=== PATIENT | female | born 2000 | race Two or more races ===

== ENCOUNTER 2024-06-13 12:45 | Outpatient (CLI) | payer OTHER | END 2024-06-13 12:48 | disposition home or self-care (01) | LOC: PRENATAL 12:45 | PROVIDERS: ATTEND Obstetrics & Gynecology Maternal & Fetal Medicine | DX: O26.849 Uterine size-date discrepancy, unspecified trimester (principal); Z36.0 Encounter for antenatal screening for chromosomal anomalies; Z14.8 Genetic carrier of other disease; Z3A.15 15 weeks gestation of pregnancy ==

== ENCOUNTER → 2024-07-18 14:36 | Outpatient (CLI) | payer OTHER | END | disposition home or self-care (01) | LOC: PRENATAL 14:36 | PROVIDERS: ATTEND Obstetrics & Gynecology Maternal & Fetal Medicine | DX: O44.00 Complete placenta previa NOS or without hemorrhage, unspecified trimester (principal); Z3A.20 20 weeks gestation of pregnancy ==

== ENCOUNTER 2024-10-10 15:02 | Outpatient (CLI) | payer OTHER | END 2024-10-10 16:31 | disposition home or self-care (01) | LOC: PRENATAL 15:02 | PROVIDERS: ATTEND Obstetrics & Gynecology Maternal & Fetal Medicine | DX: O26.849 Uterine size-date discrepancy, unspecified trimester (principal); O36.8199 Decreased fetal movements, unspecified trimester, other fetus; O32.9XX0 Maternal care for malpresentation of fetus, unspecified, not applicable or unspecified; Z3A.34 34 weeks gestation of pregnancy ==

== ENCOUNTER 2024-11-27 13:15 | Inpatient (IN) | payer OTHER ==
[~2024-11-27] VITALS: Ht 157.5 cm; Wt 3.6 kg
[2024-12-02] MEDS ORDERED: RINGERS SOLUTION,LACTATED 1,000 ML IV SCH (06:15)
[2024-12-02 06:29] VITALS: BP 107/71
[2024-12-02] MEDS ORDERED: AMPICILLIN SODIUM 2,000 MG VIAL ONE (06:44)
[2024-12-02] MEDS ORDERED: AMPICILLIN SODIUM 1,000 MG VIAL IV SCH (06:56)
[2024-12-02] MEDS ORDERED: AMPICILLIN SODIUM 2,000 MG VIAL IV ONE (07:00)
[2024-12-02 07:01] LABS: BASO % 0.2 % (0.1-1.2); EOS % 1.2 % (0.7-7.0); HEMATOCRIT 39.4 % (34.1-44.9); HEMOGLOBIN 13.3 g/dL (11.2-15.7); LYMPH # 2.42 (1.18-3.74); LYMPH % 28.6 % (19.3-53.1); MONO # 0.76 (0.24-0.82); NEUT # 5.14 (1.56-6.13); NEUT % 60.8 % (34.0-71.1); PLATELET COUNT 181 K/uL (163-369); RED BLOOD COUNT 4.58 M/uL (3.93-5.22); RED CELL DISTRIBUTION WIDTH 13.5 % (11.6-14.4)
[2024-12-02 07:09] LABS: PH,URINE 6.5 (5.0-8.0); URINE APPEARANCE Clear; URINE BILIRRUBIN Negative (NEGATIVE); URINE BLOOD Negative; URINE COLOR Dark Yellow; URINE GLUCOSE Negative (NEGATIVE); URINE KETONE 15 (NEGATIVE); URINE LEUKOCYTE Moderate; URINE NITRATE Negative; URINE PROTEIN Trace (NEGATIVE)
[2024-12-02 07:12] LABS: URINE EPITHELIAL CELLS 55.5 uL (0.0-38.8); URINE RBC 4.7 uL (0.0-20.8); URINE WBC 113.1 uL (0.0-23.2)
[2024-12-02 07:19] LABS: INR 0.98; PARTIAL THROMBOPLASTIN TIME 25.9 SECONDS (22.0-34.0); PROTHROMBIN TIME 10.7 SECONDS (9.0-11.5); URINE CAST 0.14 uL (0.0-1.40)
[2024-12-02 07:25] VITALS: BP 95/49
[2024-12-02 07:51] LABS: ALBUMIN 2.8 gm/dL (3.4-5.0); BILIRUBIN TOTAL 0.41 mg/dL (0.3-1.2); CALCIUM 9.1 mg/dL (8.5-10.1); CREATININE SERUM 0.74 mg/dL (0.55-1.02); GFR 95.62; GLOBULINA 3.7 G/DL (2.4-3.5); POTASSIUM 3.96 mEq/L (3.5-5.1); TOTAL PROTEIN 6.5 gm/dL (6.4-8.2)
[2024-12-02] MEDS ORDERED: MISOPROSTOL 25 MCG/4 ML GEL.W.APPL VAG ONE ×2 (08:00→13:30)
[2024-12-02 11:03] VITALS: BP 126/63
[2024-12-02] MEDS ORDERED: PRENATABS RX T1 EACH PO (12:44)
[2024-12-02 15:20] VITALS: BP 109/51
[2024-12-02] MEDS ORDERED: OXYTOCIN 10 UNITS/ML VIAL ONE (16:53)
[2024-12-02] MEDS ORDERED: ERYTHROMYCIN BASE OPHT 1GM EACH TUBE OP ONE (16:53)
[2024-12-02] MEDS ORDERED: OxyCODONE HCL 5 MG TABLET (ROXICODONE) PO PRN (19:30)
[2024-12-02] MEDS ORDERED: MORPHINE SULFATE 4 MG/ML VIAL IV ONE ×2 (20:05→20:50)
[2024-12-02] MEDS ORDERED: ACETAMINOPHEN 325 MG TABLET PO SCH (21:00)
[2024-12-02] MEDS ORDERED: MORPHINE SULFATE 4 MG/ML CARTRIDGE IV SCH (21:00)
[2024-12-02 21:24] VITALS: BP 125/75
[2024-12-02] MEDS ORDERED: KETOROLAC TROMETHAMINE 60 MG VIAL IM ONE (23:00)
[2024-12-03] VITALS: BP 119/73
[2024-12-03 06:34] LABS: BASO % 0.2 % (0.1-1.2); EOS # 0.03 (0.04-0.54); EOS % 0.3 % (0.7-7.0); HEMATOCRIT 34.3 % (34.1-44.9); HEMOGLOBIN 11.6 g/dL (11.2-15.7); LYMPH # 1.89 (1.18-3.74); LYMPH % 19.6 % (19.3-53.1); MEAN CORPUSCULAR HEMOGLOBIN 28.9 pg (25.6-32.2); MONO # 0.65 (0.24-0.82); MONO % 6.7 % (4.7-12.5); NEUT # 7.01 (1.56-6.13); NEUT % 72.9 % (34.0-71.1); PLATELET COUNT 162 K/uL (163-369); RED BLOOD COUNT 4.01 M/uL (3.93-5.22); RED CELL DISTRIBUTION WIDTH 13.2 % (11.6-14.4)
[2024-12-03] MEDS ORDERED: DOCUSATE SODIUM 100MG CAP PO SCH ×2 (08:00→09:00)
[2024-12-03] MEDS ORDERED: SIMETHICONE 125 MG CAPSULE PO SCH ×2 (08:00→09:00)
[2024-12-03] MEDS ORDERED: OxyCODONE HCL/APAP UD (PERCOCET) PO PRN (08:00)
[2024-12-03] MEDS ORDERED: PNV,CALCIUM 72/IRON/FOLIC ACID 1 TAB TABLET PO SCH ×2 (08:00→09:00)
[2024-12-03 08:24] VITALS: BP 111/69
[2024-12-03 16:24] VITALS: BP 126/81
[2024-12-04 01:24] VITALS: BP 126/79
[2024-12-04 10:42] VITALS: BP 115/65
[2024-12-04 16:00] VITALS: BP 135/70
[2024-12-05 01:07] VITALS: BP 103/62
[2024-12-05 09:57] VITALS: BP 118/73
== END 2024-12-05 13:49 | disposition home or self-care (01) | DRG 788 ==
LOC: LDR 12-02 06:06 → OB/GYN 12-02 13:15 → O/R 12-02 17:58 → OB/GYN 12-02 19:50
PROVIDERS: ADMIT Obstetrics & Gynecology; ATTEND Obstetrics & Gynecology
PROC: 4A1HXCZ Monitoring of Products of Conception, Cardiac Rate, External Approach (ICD-10-PCS; 2024-12-02)
PROC: 10D00Z1 Extraction of Products of Conception, Low, Open Approach (ICD-10-PCS; principal; 2024-12-02 18:00)
DX: O82 Encounter for cesarean delivery without indication (principal); Z3A.39 39 weeks gestation of pregnancy; Z37.0 Single live birth